=== PATIENT | male | born 1950 | race American Indian/Alaskan Native ===

== ENCOUNTER 2019-02-13 09:17 | Emergency (ER) | payer MEDICARE ==
[~2019-02-13] VITALS: Ht 180.3 cm; Wt 81.8 kg
[2019-02-13 09:26] VITALS: TEMP 98.6
[2019-02-13 09:55] LABS: BASO # 0.1 (0.0-0.2); BASO % 0.4 % (0.0-2.0); EOS # 0.2 (0.0-0.7); EOS % 1.1 % (0-4.0); GRAN # 11.6 (1.4-6.5); GRAN % 81.1 % (42.2-75.2); LYMPH # 1.4 (1.2-3.4); LYMPH % 9.6 % (20.0-51.0); MEAN CELL VOLUME 93 fl (80.0-100.0); MEAN CORPUSCULAR HGB CONC 31 g/dl (33.0-37.0); MEAN PLATELET VOLUME 8.4 fl (7.4-10.4); MONO % 7.2 % (1.7-9.3); PLATELET COUNT 445 K/mm3 (130-400); RED BLOOD COUNT 3.12 M/mm3 (4.20-5.60); REDCELL DISTRIBUTION WIDTH-CV 13.7 % (11.5-14.5)
[2019-02-13 09:58] LABS: HEMATOCRIT 28.9 % (42.0-52.0); MEAN CORPUSCULAR HEMOGLOBIN 29 pg (27.0-31.0)
[2019-02-13 10:05] LABS: ALANINE AMINOTRANSFERASE 8 U/L (21-72); ALBUMIN 2.9 gm/dL (3.5-5.0); ALKALINE PHOSPHATASE 96 U/L (50-136); ANION GAP 8 mmol/L (7-16); AST,SGOT 18 U/L (15-37); BILIRUBIN,TOTAL 0.3 mg/dL (0.0-1.0); BLOOD UREA NITROGEN 12 mg/dL (9-20); CALCIUM 8.3 mg/dL (8.4-10.2); CARBON DIOXIDE 29 mmol/L (22-30); CHLORIDE 101 mmol/L (98-107); CREATININE, serum 0.72 (0.66-1.25); GLUCOSE 113 mg/dL (74-106); POTASSIUM 3.7 mmol/L (3.4-5.0); SODIUM 139 mmol/L (137-145); TOTAL PROTEIN 7.3 gm/dL (6.4-8.2)
[2019-02-13 10:17] LABS: TROPONIN-I < 0.012 ng/mL (0.000-0.035)
[2019-02-13 14:38] VITALS: BP 116/50; PULSE 67
--- NOTE | 2019-02-16 08:56 | NUR ---
(late entry 02/13) WANG blas responded to a social service liaison consult in the ED for the patient. The patient's nurse reports the patient is homeless and was staying at [facility] and that [facility] had filed an APS (POC Bibi [phone]) report for the patient. REMOTE SENSING ANALYST student contacted [facility]. [facility] staff reported that the patient has been there since January 06, 2019 but he cannot return due to the level of mental health care he needs. WANG blas met with the patient. WANG student inquired if the patient had any identification and copies were placed in the patient's chart. The patient had three forms of ID and one of them was from [facility] which is located in [place], [place]. REMOTE SENSING ANALYST student contacted the [facility]. Deepak Vidal is the POC. REMOTE SENSING ANALYST student spoke with Deepak and the patient on speaker phone. The patient was agreeable to be picked up by a member of the [facility] to return to receive the services the patient needs. However, the patient was tranferred to [facility] in [place] for futher care. REMOTE SENSING ANALYST student contacted Deepak from the [facility] and Bibi from [facility] for an update. WANG student collaborated the above information with the patient's nurse.
== END 2019-02-13 14:45 | disposition home or self-care (01) ==
LOC: COL.ER 09:17 → EDBD 09:18 → COL.ER 14:45
PROVIDERS: Emergency Medicine
DX: R42 Dizziness and giddiness (principal); F17.210 Nicotine dependence, cigarettes, uncomplicated
CPT/HCPCS: J0692; J3370; J7030; J7050; Q9967